=== PATIENT | male | born 1980 | race Caucasian/White ===

== ENCOUNTER 2020-07-17 15:56 | Emergency (ER) | payer SELFPAY | END 2020-07-17 17:53 | disposition home or self-care (01) | LOC: CSHERS 15:56 | DX: S80.12XA Contusion of left lower leg, initial encounter (principal); X50.9XXA Other and unspecified overexertion or strenuous movements or postures, initial encounter | CPT/HCPCS: 99283 ==

== ENCOUNTER 2020-07-20 20:26 | Emergency (ER) | payer SELFPAY | END 2020-07-20 23:44 | disposition home or self-care (01) | LOC: CSHERS 20:26 | DX: S80.12XA Contusion of left lower leg, initial encounter (principal); F17.210 Nicotine dependence, cigarettes, uncomplicated; Z79.899 Other long term (current) drug therapy; X50.1XXA Overexertion from prolonged static or awkward postures, initial encounter | CPT/HCPCS: 99283 ==

== ENCOUNTER 2021-09-15 20:03 | Observation (INO) | payer SELFPAY ==
[2021-09-15] MEDS ORDERED: Mag-Al Plus 1200 MG/1200 MG/120 MG/30 ML UDCUP ONE (20:30)
[2021-09-15] MEDS ORDERED: Lidocaine Viscous Sol 2% 15 ml UD Cup ONE (20:30)
[2021-09-15] MEDS ORDERED: Ondansetron PF 4 MG/2 ML Vial ONE (20:30)
[2021-09-15 20:57] LABS: #Basophils 0.1 10x3/uL (0.0-0.2); #Eosinphils 0.1 10x3/uL (0.0-0.5); #Neutrophils 11.8 10x3/uL (1.5-8.4); %Basophils 0.3 % (0.0-2.0); %Eosinophils 0.4 % (0.0-6.0); %Lymphocytes 11.7 % (18.0-47.0); %Monocytes 6.5 % (0.0-10.0); %Neutrophils 80.8 % (40.0-75.0); Hemoglobin 14.3 g/dL (13.5-17.5); Mean Corpuscular HGB CONC 33.8 g/dL (32.0-36.0); Mean Corpuscular Hemoglobin 28.9 pg (27.0-33.0); Mean Corpuscular Volume 85.6 fl (81.2-95.1); Platelet Count 265 10x3/uL (150-450); RBC Distribution Width 13.4 % (11.5-14.5); Red Blood Cell (RBC) Count 4.94 10x6/uL (4.32-5.72); White Blood Cell (WBC) Count 14.7 10x3/uL (3.5-10.5)
[2021-09-15 21:12] LABS: ALT (SGPT) 26 U/L (8-55); AST (SGOT) 23 U/L (5-34); Albumin 4.5 g/dL (3.5-5.0); Alkaline Phosphatase 58 U/L (40-110); Anion Gap 16 mmol/L (10-20); BUN (Urea Nitrogen) 16 mg/dL (8.9-20.6); Bilirubin, Total 0.5 mg/dL (0.2-1.2); Calc. Creatinine Clearance 0 mL/min (70-130); Calcium 8.9 mg/dL (7.8-10.44); Carbon Dioxide 22 mmol/L (22-29); Chloride 107 mmol/L (98-107); Globulin 2.5 g/dL (2.4-3.5); Glucose 148 mg/dL (70-105); Lipase 14 U/L (8-78); Potassium 4.1 mmol/L (3.5-5.1); Sodium 141 mmol/L (136-145)
[2021-09-15] MEDS ORDERED: Piperacillin/Tazobactam 3.375 GM VIAL ONE (21:55)
[2021-09-15] MEDS ORDERED: Morphine 4 MG/ML VIAL ONE (21:55)
[2021-09-15 22:40] LABS: SARS-CoV-2 NAA Rapid Test Not Detected (NotDetected)
[2021-09-16] MEDS: Sodium Chloride 0.9% 1,000 ML IV SCH ×4 (00:15→18:03)
[2021-09-16] MEDS ORDERED: Ondansetron PF 4 MG/2 ML Vial IVP PRN ×2 (00:18→08:40)
[2021-09-16 01:02] VITALS: BMI 27.1
[2021-09-16] MEDS ORDERED: Piperacillin/Tazobactam 3.375 GM in Sodium Chloride 0.9% 100 ML IVPB SCH (02:00)
[2021-09-16] MEDS: Morphine 4 MG/ML VIAL SLOW IVP PRN ×2 (02:47→06:22)
[2021-09-16] MEDS ORDERED: Bupivacaine PF 0.5% 30 ML VIAL ONE ×2 (08:59→11:21)
[2021-09-16] MEDS ORDERED: EPINEPHrine 1 MG/ML AMP ONE ×2 (08:59→11:21)
[2021-09-16] MEDS ORDERED: Famotidine/PF 20 mg/2ml Vial SLOW IVP SCH (09:00)
[2021-09-16] MEDS ORDERED: Morphine 4 MG/ML VIAL SLOW IVP PRN ×3 (10:37→13:38)
[2021-09-16] MEDS ORDERED: Morphine 2 MG/ML VIAL SLOW IVP PRN (10:37)
[2021-09-16] MEDS ORDERED: PROPOFOL 20 ML ONE (11:23)
[2021-09-16] MEDS ORDERED: Midazolam HCl 2 mg/2 ml Vial ONE (11:24)
[2021-09-16] MEDS ORDERED: Rocuronium Bromide 10 MG/ML (10ML VIAL) ONE (11:24)
[2021-09-16] MEDS ORDERED: Fentanyl 100 MCG/2 ML VIAL ONE (11:24)
[2021-09-16] MEDS ORDERED: Ondansetron PF 4 MG/2 ML Vial ONE (11:25)
[2021-09-16] MEDS ORDERED: ceFAZolin 2 GM/Dextrose 50 ML IVPB ONE (11:33)
[2021-09-16] MEDS ORDERED: Glycopyrrolate 0.2 MG/ML 5 ML SYRINGE ONE (12:09)
[2021-09-16] MEDS ORDERED: SUGAMMADEX SODIUM 200 MG/2 ML VIAL ONE (12:12)
[2021-09-16] MEDS ORDERED: Acetaminophen 325 MG TAB PO PRN (13:38)
[2021-09-16] MEDS ORDERED: HYDROcodone/Acetaminophen 5/325 mg Tablet PO PRN ×2 (13:38)
[2021-09-16 21:13] VITALS: BP 126/83; TEMP 98.8
== END 2021-09-16 21:00 | disposition home or self-care (01) ==
LOC: CSHERS 20:03 → CSHTELE 23:40
PROVIDERS: ADMIT Surgery; ATTEND Surgery
PROC: 0FT44ZZ Resection of Gallbladder, Percutaneous Endoscopic Approach (ICD-10-PCS; principal; 2021-09-15)
DX: K80.12 Calculus of gallbladder with acute and chronic cholecystitis without obstruction (principal); F17.210 Nicotine dependence, cigarettes, uncomplicated
CPT/HCPCS: 76705; 80053; 83690; 84484; 85025; 88304; 93005; 96365; 96375; 96376; C1713; G0378; J0171; J0690; J2250; J2270; J2405; J2543; J2704; J3010; J3490; J7050; S0020; S0028; U0002

== ENCOUNTER 2022-01-17 18:19 | Emergency (ER) | payer SELFPAY ==
[~2022-01-17 18:19] MED LIST: Iopamidol 370 76% 100 ML VIAL ONE
[2022-01-17 20:22] LABS: #Basophils 0.1 10x3/uL (0.0-0.2); #Eosinphils 0.2 10x3/uL (0.0-0.5); #Monocytes 0.8 10x3/uL (0.0-1.1); #Neutrophils 5.3 10x3/uL (1.5-8.4); %Basophils 0.6 % (0.0-2.0); %Eosinophils 2.4 % (0.0-6.0); %Lymphocytes 27.3 % (18.0-47.0); %Monocytes 9.3 % (0.0-10.0); %Neutrophils 60.2 % (40.0-75.0); Hemoglobin 15.2 g/dL (13.5-17.5); Mean Corpuscular HGB CONC 33.8 g/dL (32.0-36.0); Mean Corpuscular Volume 85.9 fl (81.2-95.1); Mean Platelet Volume 9.9 fl (7.4-10.4); Platelet Count 258 10x3/uL (150-450); RBC Distribution Width 13.2 % (11.5-14.5); Red Blood Cell (RBC) Count 5.24 10x6/uL (4.32-5.72); White Blood Cell (WBC) Count 8.8 10x3/uL (3.5-10.5)
[2022-01-17 20:33] LABS: ALT (SGPT) 45 U/L (8-55); AST (SGOT) 26 U/L (5-34); Albumin 4.8 g/dL (3.5-5.0); Alkaline Phosphatase 77 U/L (40-110); Anion Gap 14 mmol/L (10-20); BUN (Urea Nitrogen) 12 mg/dL (8.9-20.6); Bilirubin, Total 0.4 mg/dL (0.2-1.2); Calc. Creatinine Clearance 0 mL/min (70-130); Calcium 9.2 mg/dL (7.8-10.44); Carbon Dioxide 27 mmol/L (22-29); Chloride 104 mmol/L (98-107); Estimated GFR 104; Glucose 86 mg/dL (70-105); Lipase 30 U/L (8-78); Potassium 4.2 mmol/L (3.5-5.1); Protein, Total 7.8 g/dL (6.0-8.3); Sodium 141 mmol/L (136-145)
== END 2022-01-17 22:29 | disposition home or self-care (01) ==
LOC: CSHERS 18:19
DX: U07.1 COVID-19 (principal); R04.2 Hemoptysis; F17.210 Nicotine dependence, cigarettes, uncomplicated
CPT/HCPCS: 71045; 71275; 80053; 83690; 84484; 85025; 93005; Q9967

== ENCOUNTER 2022-04-15 12:33 | Emergency (ER) | payer BC, SELFPAY ==
[2022-04-15] MEDS ORDERED: Ketorolac Tromethamine 30 MG/ML VIAL ONE (14:06)
[2022-04-15 14:59] LABS: #Basophils 0.1 10x3/uL (0.0-0.2); #Eosinphils 0.1 10x3/uL (0.0-0.5); #Monocytes 0.8 10x3/uL (0.0-1.1); #Neutrophils 5.4 10x3/uL (1.5-8.4); %Basophils 0.8 % (0.0-2.0); %Eosinophils 1.6 % (0.0-6.0); %Lymphocytes 25.8 % (18.0-47.0); %Monocytes 9.7 % (0.0-10.0); %Neutrophils 61.9 % (40.0-75.0); Hemoglobin 14.7 g/dL (13.5-17.5); Mean Corpuscular HGB CONC 34.3 g/dL (32.0-36.0); Mean Corpuscular Hemoglobin 29.3 pg (27.0-33.0); Mean Corpuscular Volume 85.3 fl (81.2-95.1); Platelet Count 354 10x3/uL (150-450); RBC Distribution Width 13.4 % (11.5-14.5); Red Blood Cell (RBC) Count 5.02 10x6/uL (4.32-5.72); White Blood Cell (WBC) Count 8.7 10x3/uL (3.5-10.5)
[2022-04-15 15:21] LABS: ALT (SGPT) 49 U/L (8-55); AST (SGOT) 26 U/L (5-34); Albumin 4.4 g/dL (3.5-5.0); Alkaline Phosphatase 73 U/L (40-110); Anion Gap 12 mmol/L (10-20); BUN (Urea Nitrogen) 17 mg/dL (8.9-20.6); Bilirubin, Total 0.6 mg/dL (0.2-1.2); Calc. Creatinine Clearance 0 mL/min (70-130); Calcium 9.2 mg/dL (7.8-10.44); Carbon Dioxide 23 mmol/L (22-29); Chloride 109 mmol/L (98-107); Estimated GFR 111; Globulin 2.7 g/dL (2.4-3.5); Glucose 88 mg/dL (70-105); Lipase 29 U/L (8-78); Potassium 4.2 mmol/L (3.5-5.1); Protein, Total 7.1 g/dL (6.0-8.3); Sodium 140 mmol/L (136-145)
== END 2022-04-15 16:20 | disposition home or self-care (01) ==
LOC: CSHERS 12:33
DX: R10.12 Left upper quadrant pain (principal); R07.81 Pleurodynia; M25.522 Pain in left elbow; M25.562 Pain in left knee; M79.674 Pain in right toe(s); F17.210 Nicotine dependence, cigarettes, uncomplicated; W18.30XA Fall on same level, unspecified, initial encounter; Y99.0 Civilian activity done for income or pay
CPT/HCPCS: 74177; 80053; 83690; 85025; 96374; J1885

== ENCOUNTER 2022-11-09 12:39 | Emergency (ER) | payer SELFPAY | END 2022-11-09 15:03 | disposition home or self-care (01) | LOC: CSHERS 12:39 | DX: B34.9 Viral infection, unspecified (principal); F17.210 Nicotine dependence, cigarettes, uncomplicated | CPT/HCPCS: 99283 ==